=== PATIENT | female | born 1985 | race American Indian/Alaskan Native ===

== ENCOUNTER 2020-02-21 23:55 | Emergency (ER) | payer OTHER ==
[2020-02-22 00:07] VITALS: BP 130/84
--- NOTE | 2020-02-22 00:27 | XRay Report ---
RIGHT INDEX FINGER 2 VIEWS INDICATION / CLINICAL INFORMATION: Right index finger pain and swelling. COMPARISON: None available. FINDINGS: BONES / JOINT(S): There is no evidence of fracture, subluxation or destructive lesion. No significant arthritis. SOFT TISSUES: There is a bandage overlying the index finger. No radiopaque foreign body is seen. ADDITIONAL FINDINGS: None. Signer Name: Michael Corral MD Signed: 02/22/2020 12:23 AM Workstation Name: [id number]
[2020-02-22] MEDS ORDERED: ACETAMINOPHEN 500 MG TAB PO ONE (03:13)
[2020-02-22] MEDS ORDERED: KETOROLAC 30 MG/1 ML INJ IM ONE (03:13)
--- NOTE | 2020-02-22 03:17 | Emergency Department Report ---
Upper Extremity - HPI Chief Complaint: Extremity Injury, Upper Stated Complaint: RT FINGER PAIN Upper Extremity: Right Index Finger (Pain and swelling) Occurred When: 3 Days Mechanism: Hit with Object (Finger hit by a closing door) Severity: severe Symptoms: Yes Pain with Movement, Yes Limited Range of Movement (due to pain), Yes Swelling, Yes Bruising/Ecchymosis, No Deformity, No Numbness, No Weakness, No Laceration or Abrasion Other History: Patient is a 34-year-old -[place] female with no past medical history who presents to the ED with complaint of acute onset persistent severe distal right index finger pain with swelling and hematoma after a door closed onto the index finger about 3 days ago. Patient states that she is paul ble to sleep, unable to work and unable perform any active range of motion with the right index finger because of severe pain. Patient states that she has been taking ibuprofen 800 mg every 6 hours with no relief. Patient denies numbness and tingling or weakness of right index finger, fall, nausea, vomiting, headache, dizziness, syncope or neck pain. ED Review of Systems ROS: Stated complaint: RT FINGER PAIN Other details as noted in HPI Constitutional: denies: chills, fever Eyes: denies: eye pain, eye discharge, vision change ENT: denies: ear pain, throat pain Respiratory: denies: cough, shortness of breath, wheezing Cardiovascular: denies: chest pain, palpitations Endocrine: no symptoms reported Gastrointestinal: denies: abdominal pain, nausea, diarrhea Genitourinary: denies: urgency, dysuria, discharge Musculoskeletal: joint swelling (Right index finger pain and swelling), arthralgia (Right index finger pain with swelling). denies: back pain Skin: denies: rash, lesions Neurological: denies: headache, weakness, paresthesias Psychiatric: denies: anxiety, depression Hematological/Lymphatic: denies: easy bleeding, easy bruising ED Past Medical Hx - Past Medical History Previous Medical History?: No - Surgical History Past Surgical History?: No - Social History Smoking Status: Never Smoker Substance Use Type: None - Medications Home Medications: Home Medications Medication Instructions Recorded Confirmed Last Taken Type Acetaminophen/Codeine [Tylenol 1 tab PO Q6H PRN #12 tab 02/22/20 Unknown Rx /Codeine # 3 tab] Cyclobenzaprine [Flexeril] 10 mg PO QHS PRN #15 tablet 02/22/20 Unknown Rx Ketorolac [Toradol] 10 mg PO Q8H PRN #20 tablet 02/22/20 Unknown Rx Upper Extremity Exam - Exam General: Vital signs noted. No distress. Alert and acting appropriately. Head and Torso: No HEENT Abnormality, No Neck Tenderness, No Chest/Lungs Abnormality, No Abdominal Tenderness, No Back Tenderness Shoulder Exam: Yes Normal Range of Motion in Shoulder, No Shoulder Tenderness, No Clavicle Tenderness, No Shoulder Deformity, No AC Joint Tenderness Arm Exam: No Arm/Humerus Tenderness, No Arm Deformity Elbow: Yes Normal Range of Motion in Elbow, No Elbow Tenderness, No Elbow Deformity Forearm: No Forearm Tenderness, No Forearm Deformity, No Pain with Pronation, No Pain with Supination Wrist: Yes Normal ROM in Wrist, No Wrist Tenderness, No Wrist Deformity, No Sn uffbox Tenderness, No Pain with Axial Thumb Compression Hand: Yes Digit Tenderness (Distal right index finger tenderness), No Hand Tenderness, No Hand Deformity, No Normal ROM in Digit(s) (Limited range of motion due to pain), No Digit(s) Deformity, No Tendon Dysfunction CMS Exam: Yes Normal Distal Pulses, Yes Normal Capillary Refill, Yes Normal Di stal Sensation, No Broken Skin ED Course Vital Signs 02/22/20 00:00 Temperature 98.3 F Pulse Rate 84 Respiratory 18 Rate Blood Pressure 130/84 O2 Sat by Pulse 99 Oximetry ED Medical Decision Making - Radiology Data Radiology results: report reviewed, image reviewed Findings [facility] [address] [place] [address] XRay Report Signed Patient: GENI WOOD MR#: [id number] : 1985 Acct:[id number] Age/Sex: 34 / F ADM Date: 02/21/20 Loc: ED Attending Dr: Ordering Physician: MIGUEL ANGEL GONZALEZ MD Date of Service: 02/22/20 Procedure(s): XR finger(s) 2+V RT Accession Number(s): [id number] cc: ED MD LISA Fluoro Time In Minutes: RIGHT INDEX FINGER 2 VIEWS INDICATION / CLINICAL INFORMATION: Right index finger pain and swelling. COMPARISON: None available. FINDINGS: BONES / JOINT(S): There is no evidence of fracture, subluxation or destructive lesion. No significant arthritis. SOFT TISSUES: There is a bandage overlying the index finger. No radiopaque foreign body is seen. ADDITIONAL FINDINGS: None. Signer Name: Michael Corral MD Signed: 02/22/2020 12:23 AM Workstation Name: [id number] Transcribed By: RT Dictated By: Michael Corral MD Electronically Authenticated By: Michael Corral MD Signed Date/Time: 02/22/2022 DD/ TD/TT: - Medical Decision Making This is a 34-year-old -[place] female with no past medical history who presents to the ED with complaint of acute onset persistent severe distal right index finger pain with swelling and hematoma after a door closed onto the index finger about 3 days ago. Patient states that she is unable to sleep, unable to work and unable perform any active range of motion with the right index finger because of severe pain. Patient states that she has been taking ibuprofen 800 mg every 6 hours with no relief. In the ED, patient is alert and oriented x3 and is not in distress but appears to be in significant pain. Patient was treated for pain in the ED and right index finger x-ray shows no acute fractures or subluxations. Right index finger was splinted with a finger splint and the patient will discharge home on pain medications and advised to follow-up with her primary care physician in 7 to 10 days for reevaluation or return to the ED immediately if symptoms get worse. - Differential Diagnosis finger fracture; finger dislocation; finger sprain; finger contusion Critical care attestation.: If time is entered above; I have spent that time in minutes in the direct care of this critically ill patient, excluding procedure time. ED Disposition Clinical Impression: Sprain of interphalangeal joint of right index finger Qualifiers: Encounter type: initial encounter Qualified Code(s): S63.630A - Sprain of interphalangeal joint of right index finger, initial encounter Contusion of right index finger with damage to nail Qualifiers: Encounter type: initial encounter Qualified Code(s): S60.121A - Contusion of right index finger with damage to nail, initial encounter Disposition: TO HOME OR SELFCARE Is pt being admited?: No Does the pt Need Aspirin: No Condition: Stable Instructions: Finger Sprain (ED), Splint Care (ED) Additional Instructions: Take medication with food, drink plenty of fluids and follow-up with your primary care physician in 7 to 10 days for reevaluation. Return to the ED immediately if symptoms get worse. Prescriptions: Cyclobenzaprine [Flexeril] 10 mg PO QHS PRN #15 tablet PRN Reason: Muscle Spasm Ketorolac [Toradol] 10 mg PO Q8H PRN #20 tablet PRN Reason: Pain Acetaminophen/Codeine [Tylenol /Codeine # 3 tab] 1 tab PO Q6H PRN #12 tab PRN Reason: Pain , Severe (7-10) Referrals: [facility] [Provider Group] - 7-10 days Time of Disposition: 03:15 Print Language: KAZAKH
== END 2020-02-22 03:30 | disposition home or self-care (01) ==
LOC: ED 23:55
DX: S63.630A Sprain of interphalangeal joint of right index finger, initial encounter (principal); S60.021A Contusion of right index finger without damage to nail, initial encounter; X58.XXXA Exposure to other specified factors, initial encounter; Y93.89 Activity, other specified; Y92.89 Other specified places as the place of occurrence of the external cause; Y99.8 Other external cause status; Z79.899 Other long term (current) drug therapy
CPT/HCPCS: 29130; 73140; 96372; 99283; J1885